=== PATIENT | female | born 1990 | race Caucasian/White ===

== ENCOUNTER 2020-11-22 06:29 | Day surgery (SDC) | payer OTHER ==
[2020-11-22] MEDS ORDERED: Lactated Ringers 1,000 ML IV ONE ×2 (06:45→07:32)
[2020-11-22] MEDS ORDERED: Lactated Ringers 1,000 ML IV SCH (07:00)
[2020-11-22 07:25] VITALS: O2SAT 96
[2020-11-22] MEDS ORDERED: BUPIVACAINE 0.5% VIAL IJ ONE (07:32)
[2020-11-22] MEDS ORDERED: MEFOXIN 2 GM PREMIX** 2 GM/50 ML ML IV ONE (08:19)
[2020-11-22] MEDS ORDERED: Naropin 0.5% 30 ML VIAL ONE (08:20)
[2020-11-22] MEDS ORDERED: DIPRIVAN 200 MG/20 ML IV ONE (08:20)
[2020-11-22] MEDS ORDERED: TORAdol 30 mg Injection ONE (08:20)
[2020-11-22] MEDS ORDERED: Versed 2 MG/2 ML Injection ONE (08:20)
[2020-11-22] MEDS ORDERED: DILAUDID 2 MG INJECTION ONE (08:20)
[2020-11-22] MEDS ORDERED: KEFZOL 1 GM ONE (08:20)
[2020-11-22] MEDS ORDERED: Zofran 4 MG/2 ML VIAL ONE (08:20)
[2020-11-22] MEDS ORDERED: Decadron 4 MG INJ ONE ×2 (08:20)
[2020-11-22] MEDS ORDERED: EPINEPHRINE 1MG/ML AMP ONE (08:20)
[2020-11-22] MEDS ORDERED: Xylocaine-Mpf 2% 5 Ml Vial ONE (08:20)
[2020-11-22] MEDS ORDERED: XYLOCAINE 1% HCL 20 ML MDV ONE (08:58)
[2020-11-22] MEDS ORDERED: TRANDATE 20 MG/4 ML SYRINGE IV ONE (10:53)
--- NOTE | 2020-11-22 11:26 | XRAY ---
Indication: Lateral ankle stabilization. Intraoperative fluoroscopy provided for 1 minute 13 seconds. 7 digital spot images of the right ankle was obtained demonstrating multiple instrumentation. Correlate with intraoperative findings/report.
[2020-11-22] MEDS ORDERED: TRANDATE 100 MG/20 ML MDV FOR DRIP IV ONE (11:29)
[2020-11-22] MEDS ORDERED: Hydromorphone 1 mg/ml Injection ONE (11:32)
--- NOTE | 2020-11-22 12:31 | XRAY ---
1 minute and 13 seconds fluoroscopy time in surgery for stabilization of the right ankle.
[2020-11-22 14:07] VITALS: BP 130/77; PULSE 89
--- NOTE | 2020-11-25 09:29 | OP ---
SURGERY DATE/TIME: 11/22/2020 0844 INDICATION FOR PROCEDURE: Berna presented to my service on 11/14/2020 for complaints of right ankle pain to the outside following an inversion sprain injury. The patient was treated by another provider for a series of eight weeks with immobilization, nonweight bearing, ambulation and CAM boot. At this time the patient has had very little improvement in her pathology and has had recurrent injury to this ankle in regards to lateral ankle instability. The issue is chronic and likely will not repair on its own with time, immobilization or any other conservative therapy which has all been exhausted at this time including physical therapy and nonsteroidal anti-inflammatories. At this time the patient wishes to proceed with surgical intervention to which I agree. The patient understood all risks, benefits and complications of the surgical intervention which were explained in depth at chair side when the consultation was held. She understands and was given plenty of time for questions which were answered to her apparent satisfaction. PREOPERATIVE DIAGNOSES: 1) Lateral ankle instability right. 2) Right ankle pain. 3) Right ankle crepitation with range of motion. POSTOPERATIVE DIAGNOSES: 1) Lateral ankle instability right. 2) Right ankle pain. 3) Right ankle crepitation with range of motion. PROCEDURES: 1) Right ankle arthroscopy with synovectomy. 2) Right lateral stabilization double ligament. SURGEON: Harjeet Weeks DPM. BUFFING MACHINE OPERATOR SEMIAUTOMATIC: None. ANESTHESIA: General plus local. HEMOSTASIS: Thigh tourniquet set to 350 mm of Mercury for 78 minutes. ESTIMATED BLOOD LOSS: Less than 10 cc. MATERIALS: Arthrex internal brace, three fiber tack bone anchors, 2-0 Vicryl and 3-0 Nylon. INJECTABLES: 30 cc of 1:1 mixture of 1% lidocaine plain and 0.5% Marcaine injected into the right ankle in an ankle block-type fashion. DESCRIPTION OF PROCEDURE AND FINDINGS: Following adequate assessment by the anesthesia team in the preoperative area, the patient was brought into the OR and placed on the OR table in the supine position. A well-padded thigh tourniquet was applied to the patient's right leg and the tourniquet was set to 350 mm of Mercury. At this time the right lower extremity was prepped and draped in the typical sterile fashion and the surgical extremity was lowered onto the surgical field. At this time attention was directed to the anterior aspect of the right ankle where a marking pen was utilized to plan out the surgical site. One small poke hole incision was made just medial to the tibialis anterior tendon at the level of the tibiotalar joint this was superficial and then blunt dissection was made utilizing a mini-hemostat to reach and puncture the capsule of the tibiotalar joint. At this time a blunt trocar and obturator was inserted into the tibiotalar joint. The obturator was then removed and the arthroscopy scope was placed into the joint. At this time the guide light was utilized to visualize the entry point for the shaver at the lateral aspect of the tibiotalar joint this was identified just lateral to the superficial peroneal nerve distribution. Again, an 11 blade was made to make a superficial skin incision and a blunt curved mini-hemostat was utilized to puncture the capsule and dissect the subcutaneous tissue to the level of the capsule without damaging any neurovascular structures. At this time triangulation was utilized to identify the tip of the shaver. At this time significant amount of synovitis was identified within the joint which was resected under direct visualization of the arthroscopic lens. Multiple sites were inspected with particular interest to the lateral ankle ligaments which were visualized and shown to be ruptured as well as the multiple areas on the talar dome and distal tibial plafond. There showed no osteochondral lesions or defects within the cartilage. All synovitis was resected and the obturator lens and shaver were removed from the surgical site. At this time a curved incision extending from the distal tip of the fibula out to the talar neck and down to the lateral wall of the calcaneus was made in order to visualize the surgical site. An incision was made utilizing a 15 blade. Careful dissection was made using sharp and blunt dissection in order to prevent any injury to the superficial peroneal nerve which was identified and retracted out of the surgical field. At this time the distal limb of the internal brace was first placed into the lateral aspect of the talar neck at approximate 30 degree angle making sure not to violate the posterior facet and be complete positioned within the talar body. Following placement of this and of the internal brace, the Brostrom portion of the procedure was performed this was performed by raising a periosteal flap off of the end of the anterior distal fibula which was utilized to imbricate the end of the ruptured ligament found at found at this site. Two fiber tacks were utilized to split the difference between the distal and proximal aspects of the ligament which were placed into the distal end of the fibula. In the center of this the drill hole as the proximal limb for the internal brace was predrilled prior to performing the Brostrom portion of the procedure. Following the [id number] technique in order to bring and imbricate the anterior talofibular ligament into a normal resting position with the foot dorsiflexed and slightly everted, the proximal limb of the internal brace was anchored into the fibula. At this time attention was then directed to the distal tip of the fibula where the ruptured calcaneofibular ligament (CFL) was identified. At this time the peroneal tendons were identified and visualized and appeared to be healthy without any indications of synovectomy or damage. At this time they were retracted out of the surgical field and the proximal ruptured limb of the calcaneofibular ligament was imbricated using a fiber tack to the distal tip of the fibula. At this time the foot was held in dorsiflexion and eversion for the remainder of the procedure. A copious amount of sterile saline was utilized to flush the surgical site and 2-0 Vicryl was utilized to coapt the subcutaneous skin edges which were then followed by 3-0 Nylon in a horizontal mattress-type fashion making sure to mikaela the skin edges. The punctures sites for the arthroscopic procedure were then coapted utilizing 3-0 Nylon in a horizontal mattress-type fashion. At this time the tourniquet was taken down. The total tourniquet time was approximately 78 minutes. The leg was cleansed with sterile saline on a wet lap and dried with a dry lap. A dressing consisting of Adaptic, 4x4, Kerlix and a well-padded posterior splint with sugar-tong was applied to the right lower extremity and set in a position of dorsiflexion and eversion. Anesthesia was reserved and the patient was returned to the postoperative anesthesia care unit with vital signs stable and vascular status intact. Postoperative orders as indicated in the postoperative orders in the surgical note.
== END 2020-11-22 13:15 | disposition home or self-care (01) ==
LOC: SDC 06:29
PROVIDERS: ATTEND Podiatrist Foot & Ankle Surgery
DX: M25.371 Other instability, right ankle (principal); M25.571 Pain in right ankle and joints of right foot; M24.871 Other specific joint derangements of right ankle, not elsewhere classified; S93.491D Sprain of other ligament of right ankle, subsequent encounter
CPT/HCPCS: 27696; 29895; 73600; 76000; 84703; J0171; J0690; J0694; J1100; J1170; J1885; J2250; J2405; J2704; J2795

== ENCOUNTER 2021-02-13 12:20 | Emergency (ER) | payer OTHER ==
[2021-02-13 12:43] VITALS: BP 149/110; PULSE 95; O2SAT 97
[2021-02-13] MEDS ORDERED: TYLENOL 325 MG PO ONE (12:52)
--- NOTE | 2021-02-13 12:59 | ERPHSYRPT ---
- History of Present Illness Time Seen by Provider: 02/13/21 12:45 Source: patient Exam Limitations: no limitations Patient Subjective Stated Complaint: here for pain to rihgt ankle after tripping and falling, she had surgery on ankle to repain tendons on 11/22/20. she was walking without book when tripped Triage Nursing Assessment: pt alert, resp easy, skin w/d/p, has scar to right ankle no sweling noted, strong radial pulse Physician History: Patient is a 30-year-old female presents to our emergency department with pain to her right ankle. Patient states she had surgery on her right ankle on the 22 November. Patient has since been wearing a walking boot. Patient states she took her walking boot off today however accidentally inverted her ankle. Injury occurred just prior to arrival. Pain described as an ache that is well localized. No radiation. Pain worse with movement palpation and weightbearing. Pain improved with rest. No other injuries reported. No BHT or LOC. The fall was mechanical. It was not associated with any sort of neuro or cardiovascular symptomology. Patient voices no other complaints concerns at this time. Method of Injury: twisted Occurred: just prior to arrival Quality: constant Severity of Pain-Max: moderate Severity of Pain-Current: mild Lower Extremities Pain: ankle: right Allergies/Adverse Reactions: diphenhydramine [From Benadryl] Allergy (Severe, Verified 11/22/20 06:53) lips and facial swelling iodine Allergy (Severe, Verified 11/22/20 06:53) Hives ketorolac [From Toradol] Allergy (Severe, Verified 11/22/20 06:53) throat swelling and vomiting tramadol Allergy (Severe, Verified 11/22/20 06:53) throat swelling fentanyl Allergy (Verified 11/22/20 06:53) Hives latex Allergy (Verified 11/22/20 06:53) Hives povidone-iodine [From Betadine] Allergy (Verified 11/15/20 18:04) soap [From Betadine] Allergy (Verified 11/15/20 18:04) Home Medications: Albuterol Sulfate [Proair Hfa] 2 puff IH UD PRN 11/22/20 [History] Hx Influenza Vaccination/Date Given: Yes Hx Pneumococcal Vaccination/Date Given: No Immunizations Up to Date: No Travel Risk - International Travel Have you traveled outside of the country in past 3 weeks: No - Coronavirus Screening Are you exhibiting any of the following symptoms?: No Close contact with a COVID-19 positive Pt in past 14-21 Days: No - Vaccine Status Have you recieved a Covid-19 vaccination: No - Review of Systems Constitutional: No Symptoms, No Fever, No Chills Eyes: No Symptoms Ears, Nose, & Throat: No Symptoms Respiratory: No Symptoms, No Cough, No Dyspnea Cardiac: No Symptoms, No Chest Pain, No Edema, No Syncope Abdominal/Gastrointestinal: No Symptoms, No Abdominal Pain, No Nausea, No Vomiting, No Diarrhea Genitourinary Symptoms: No Symptoms, No Dysuria Musculoskeletal: No Symptoms, No Back Pain, No Neck Pain Skin: No Symptoms, No Rash Neurological: No Symptoms, No Dizziness, No Focal Weakness, No Sensory Changes Psychological: No Symptoms Endocrine: No Symptoms Hematologic/Lymphatic: No Symptoms Immunological/Allergic: No Symptoms All Other Systems: Reviewed and Negative - Past Medical History Pertinent Past Medical History: Yes Neurological History: Epilepsy ENT History: No Pertinent History Cardiac History: Hypertension Respiratory History: Asthma Endocrine Medical History: No Pertinent History Musculoskeletal History: No Pertinent History GI Medical History: No Pertinent History History: No Pertinent History Psycho-Social History: No Pertinent History Female Reproductive Disorders: No Pertinent History Other Medical History: last seizure was in 2011 - Past Surgical History Past Surgical History: Yes Neuro Surgical History: No Pertinent History Cardiac: No Pertinent History Respiratory: No Pertinent History Gastrointestinal: Cholecystectomy Genitourinary: Other Musculoskeletal: No Pertinent History, Orthopedic Surgery Female Surgical History: Section, Tubal Ligation Other Surgical History: x2,right ankle ,. left arm fx repair - Social History Smoking Status: Current every day smoker Exposure to second hand smoke: Yes Drug Use: none Patient Lives Alone: No - Female History Hx Last Menstrual Period: now Hx Now: No - Nursing Vital Signs Nursing Vital Signs: Initial Vital Signs Temperature 98.8 F 02/13/21 12:39 Pulse Rate 95 H 02/13/21 12:39 Respiratory Rate 18 02/13/21 12:39 Blood Pressure 149/110 02/13/21 12:39 O2 Sat by Pulse Oximetry 97 02/13/21 12:39 Pain Scale Pain Intensity 8 - Physical Exam General Appearance: alert Eyes, Ears, Nose, Throat Exam: moist mucous membranes Neck Exam: non-tender, supple Cardiovascular/Respiratory Exam: chest non-tender, normal breath sounds, regular rate/rhythm, no respiratory distress Gastrointestinal/Abdominal Exam: non-tender, guarding Back Exam: normal inspection, No vertebral tenderness Hips Exam: bilateral: non-tender, normal inspection, normal range of motion, no evidence of injury Legs Exam: bilateral leg: non-tender, normal inspection, normal range of motion, no evidence of injury Knees Exam: bilateral knee: non-tender, normal inspection, normal range of motion, no evidence of injury Ankle Exam: right ankle: pain, soft tissue tenderness, swelling, other (Right ankle with some soft tissue swelling laterally. Overlying soft tissue intact. Surgical scar well-healed. Negative Homans' sign. Active range of motion limited due to pain. Neurovascular intact distally.), left ankle: non-tender, normal inspection, normal range of motion, no evidence of injury Foot Exam: bilateral foot: non-tender, normal inspection, normal range of motion, no evidence of injury Neuro/Tendon Exam: normal sensation, normal motor functions Mental Status Exam: alert, oriented x 3, cooperative Skin Exam: normal color, warm, dry SpO2 Interpretation: normal SpO2: 97 O2 Delivery: Room Air - Course Nursing assessment & vital signs reviewed: Yes - Radiology Exams Ankle X-ray Interpretation: Teleradiologist Report (Lateral malleolus radiolucencies presumed postoperative and small medial malleolus well-circumscribed ossification presumed developmental versus old injury. Mild anterolateral soft tissue swelling. No other bony articular or soft tissue abnormalities.) Ordered Tests: Active Orders 24 hr Category Date Time Status ANKLE (3 VIEWS) Stat Exams 02/13/21 12:51 Completed Medication Summary Discontinued Medications Generic Name Dose Route Start Last Admin Trade Name Evita PRN Reason Stop Dose Admin Acetaminophen 975 mg 02/13/21 12:52 02/13/21 13:12 Tylenol 325 Mg PO 02/13/21 12:53 975 mg STAT ONE Administration Acetaminophen Confirm 02/13/21 13:12 Tylenol 325 Mg Administered 02/13/21 13:13 Dose 975 mg .ROUTE .STK-MED ONE - Progress Progress: improved Progress Note: Patient reassessed. Pain improved. Patient received a gram of Tylenol for pain control. Patient has multiple allergies. X-ray negative for fracture dislocation. Postoperative changes observed on x-ray. Patient states she has crutches at home. She also has her walking boot and a wheelchair. Patient advised to keep her ankle elevated. Cold pack. Patient to follow-up with the primary care doctor/ankle surgeon for reevaluation within 48 hours. Patient will take [id number] analgesics for pain control. 02/13/21 13:33 Counseled pt/family regarding: diagnosis, need for follow-up, rad results - Departure Departure Disposition: Home Clinical Impression: Ankle sprain Condition: Stable Critical Care Time: No Referrals: JIE MCCORMICK PA [Primary Care Provider] - Additional Instructions: Discharge/Care Plan SUNSHINE LUJAN was seen on 02/13/21 in the Emergency Room. The patient was counseled regarding Diagnosis,Lab results, Imaging studies, need for follow up and when to return to the Emergency Room. Prescriptions given: Discharge Note I have spoken with the patient and/or caregivers. I have explained the patient's condition, diagnosis and treatment plan based on the information available to me at this time. I have answered the patient's and/or caregiver's questions and addressed any concerns. The patient and/or caregivers have as good understanding of the patient's diagnosis, condition and treatment plan as can be expected at this point. The vital signs have been stable. The patient's condition is stable and appropriate for discharge from the emergency department. The patient will pursue further outpatient evaluation with the primary care physician or other designated or consulting physician as outlined in the d ischarge instructions. The patient and/or caregivers are agreeable to this plan of care and follow-up instructions have been explained in detail. The patient and/or caregivers have received these instruction. The patient/and or caregivers are aware that any significant change in condition or worsening of symptoms should prompt an immediate return to this or the closest emergency department or call 911.
[2021-02-13] MEDS ORDERED: TYLENOL 325 MG ONE (13:12)
--- NOTE | 2021-02-13 13:16 | XRAY ---
Indication: Pain following fall. Comparison: December 23, 2020. 3 view right ankle again demonstrates lateral malleolus radiolucencies presumed postoperative and small medial malleolus well-circumscribed ossification presumed developmental versus old injury. Mild anterolateral soft tissue swelling. No other bony, articular, or soft tissue abnormalities.
== END 2021-02-13 13:32 | disposition home or self-care (01) ==
LOC: ED 12:20
DX: S93.401A Sprain of unspecified ligament of right ankle, initial encounter (principal); W01.0XXA Fall on same level from slipping, tripping and stumbling without subsequent striking against object, initial encounter; M25.571 Pain in right ankle and joints of right foot
CPT/HCPCS: 73610; 99283; A9270-GY

== ENCOUNTER 2021-08-01 06:52 | Day surgery (SDC) | payer OTHER ==
[~2021-08-01 06:52] MED LIST: BUPIVACAINE 0.5% VIAL IJ ONE; XYLOCAINE 1% HCL 20 ML MDV ONE
[2021-08-01] MEDS ORDERED: CEFAZOLIN 2 GM-D5W BAG** 2 GM/50 ML ML IV SCH (08:00)
[2021-08-01] MEDS ORDERED: Lactated Ringers 1,000 ML IV SCH (08:00)
[2021-08-01] MEDS ORDERED: CEFAZOLIN 2 GM-D5W BAG** 2 GM/50 ML ML IV ONE (08:00)
[2021-08-01] MEDS ORDERED: Lactated Ringers 1,000 ML IV ONE (08:01)
[2021-08-01] MEDS ORDERED: Zofran 4 MG/2 ML VIAL ONE (09:00)
[2021-08-01] MEDS ORDERED: Xylocaine-Mpf 2% 5 Ml Vial ONE (09:00)
[2021-08-01] MEDS ORDERED: DILAUDID 2 MG INJECTION ONE (09:00)
[2021-08-01] MEDS ORDERED: DIPRIVAN 200 MG/20 ML IV ONE (09:00)
[2021-08-01] MEDS ORDERED: Decadron 4 MG INJ ONE (09:00)
[2021-08-01] MEDS ORDERED: BREVIBLOC 100 MG/10 ML IV ONE (11:09)
[2021-08-01] MEDS ORDERED: Hydromorphone 1 mg/ml Injection ONE ×2 (11:44→12:00)
[2021-08-01] MEDS ORDERED: MORPHINE SULFATE 10 MG/ML ONE (12:17)
[2021-08-01 13:23] VITALS: O2SAT 96
[2021-08-01 13:31] VITALS: BP 152/98; PULSE 84
--- NOTE | 2021-08-01 14:21 | OP ---
SURGERY DATE/TIME: 08/01/2021 0915 PREOPERATIVE DIAGNOSIS: Tarsal tunnel syndrome right lower extremity. POSTOPERATIVE DIAGNOSIS: Tarsal tunnel syndrome right lower extremity. PROCEDURE: Tarsal tunnel release right lower extremity. SURGEON: Harjeet Weeks DPM. BOOKKEEPER ASSISTANT: None. ANESTHESIA: General plus local postoperatively. HEMOSTASIS: Thigh tourniquet set to 350 mm of Mercury for 74 minutes. ESTIMATED BLOOD LOSS: Less than 10 cc. MATERIALS: Surgical jamel. INJECTABLES: 20 cc of a 1:1 mixture of 1% lidocaine plain and 0.5% bupivacaine plain. INDICATION FOR SURGERY: Berna is a very pleasant 31 year-old female, very well known to my service for suffering a lateral ankle ligament rupture with extreme pain that did not respond to conservative therapy. We proceeded with a lateral destabilization. During the course of physical therapy, she suffered from her fall she had some weakness to the extensor muscle group of her ankle and discovered in her fall she likely damaged the common peroneal nerve, was also noted some scar tissue resulting in the drop foot. After EMG was performed this demonstrated severe common peroneal nerve impingement as well as severe tarsal tunnel. Dr. Alvarez in [place] did not feel comfortable with proceeding with surgical intervention. The tarsal tunnel actually is not smooth anatomy for this he recommended immediate tarsal tunnel release two weeks ago. The patient followed up in my clinic this last week and notified me of this therefore we got her on the schedule as soon as possible in order to perform the tarsal tunnel release. The patient understands all risks, benefits and complications of surgical intervention at this time including but not limited to failure of surgical intervention, delayed wound healing, nonwound healing, continued scars and adhesions if not worsening of the tarsal tunnel syndrome and possible loss of sensation to the right lower extremity. With all of this she understands the generalized goal for this surgery is to reduce the numbness and tingling to the plantar aspect of the foot. There were no guarantees made as to the outcome of surgical intervention at this time with this the patient wished to proceed. DESCRIPTION OF PROCEDURE AND FINDINGS: Following satisfactory preoperative evaluation, the patient was brought into OR and placed on OR table and placed in supine position. General anesthesia was then administered by the anesthesia team. A well-padded pneumatic tourniquet was placed around the patient's right thigh. The right foot was then prepped and draped in the typical sterile fashion. An Esmarch was utilized to exsanguinate the right lower extremity and tourniquet inflated to 350 mm of Mercury. At this time attention was directed to the posterior aspect of the right medial malleolus where a 4.5 cm longitudinal incision was made down to skin using a 15 blade. The incision was carefully deepened through subcutaneous tissue by careful sharp and blunt dissection taking care to protect all neurovascular structures. At this time a second incision was created along the abductor hallucis muscle belly approximately 4 cm incision with the proximal incision starting at the distal end of the previous incision the two by approximately a 2 cm skin bridge. The flexor retinaculum was identified transected and cauterized with bipolar cautery. The incision was then followed proximally and distally releasing most of the posterior compartment of the leg to the abductor hallucis muscle belly. The abductor hallucis muscle belly then was carefully reflected away from the tibial nerve and the fascia was released. Medial and lateral plantar tunnels identified and bluntly with a [place] elevator made a T-shaped fasciotomy which was created into the abductor hallucis muscle belly. The nerve at the medial and lateral portals were identified and via blunt dissection the nerve tunnels were then cauterized via bipolar taking care to protect neurological and arterial structures, stopping between the medial and lateral plantar nerves were then sharply divided with dissecting scissors and bipolar electrocautery. The medial calcaneal nerve was then identified and subcutaneous tissue was carefully freed of its constricture. Decompression of the medial and lateral plantar nerve, the medial calcaneal nerve and the tibial nerve were then completed at this time. At this time area was then flushed with sterile saline. No subcutaneous stitches were used to provide for prevention of adhesion. Skin jamel were used to close the surgical site. A postoperative injection of a 1:1 mixture of 1% lidocaine plain and 0.5% bupivacaine plain was injected. The tourniquet was the deflated at 74 minutes total tourniquet time. The patient was deemed to have dorsalis pedis and posterior tibial pulse noted with immediate capillary refill time to all digits. A dressing consisting of Hibiclens, Adaptic, 4x4, Kerlix was applied to the right lower extremity as well as a posterior splint in order to reduce the amount of tension. On the surgical incision. The patient tolerated the procedure as well as the anesthesia without complication and was transported to postoperative anesthesia care unit with vital signs stable and vascular status intact to the right lower extremity. Postoperative orders as indicated in the patient's postoperative chart.
== END 2021-08-01 13:40 | disposition home or self-care (01) ==
LOC: SDC 06:52 → EDSTATUS 14:06
PROVIDERS: ATTEND Podiatrist Foot & Ankle Surgery
DX: G57.51 Tarsal tunnel syndrome, right lower limb (principal); M25.571 Pain in right ankle and joints of right foot; Z79.899 Other long term (current) drug therapy
CPT/HCPCS: 28035; 84703; J0690; J1100; J1170; J2270; J2405; J2704

== ENCOUNTER 2022-07-29 14:13 | Day surgery (SDC) | payer OTHER ==
[2022-07-29] MEDS ORDERED: Sensorcaine 0.25% 10 ML IJ ONE (14:14)
[2022-07-29] MEDS ORDERED: LIDOCAINE HCL 1% 50 MG/5 ML VL PF IJ ONE (14:14)
[2022-07-29] MEDS ORDERED: Versed 2 MG/2 ML Injection ONE (14:42)
[2022-07-29] MEDS ORDERED: Lactated Ringers 1,000 ML IV ONE (16:06)
[2022-07-29] MEDS ORDERED: DIPRIVAN 200 MG/20 ML IV ONE (16:12)
--- NOTE | 2022-07-29 17:18 | XRAY ---
Indication: Right lumbar sympathetic nerve block. Intraoperative fluoroscopy provided for 41 seconds. 6 digital spot image submitted for interpretation demonstrates right posterior needle tip projecting just anterior to L2 vertebral body. Small amount of contrast injected for needle tip placement. Correlate with intraoperative findings/report.
--- NOTE | 2022-07-29 17:21 | XRAY ---
41 seconds of fluoroscopy was used in surgery for a right lumbar sympathetic nerve block.
== END 2022-07-29 16:50 | disposition home or self-care (01) ==
LOC: SDC-PAIN 14:13
PROVIDERS: ATTEND Psychiatry & Neurology Pain Medicine
DX: G90.521 Complex regional pain syndrome I of right lower limb (principal); Z79.899 Other long term (current) drug therapy
CPT/HCPCS: 64520; 72100; 77002; 77003; 81025; 82947; J2001; J2250; J2704; Q9966

== ENCOUNTER 2022-09-02 11:11 | Day surgery (SDC) | payer OTHER ==
[2022-09-02] MEDS ORDERED: Xylocaine 1% Vial 30 ML PF IJ ONE (11:12)
[2022-09-02] MEDS ORDERED: Sensorcaine 0.25% 10 ML IJ ONE (11:12)
[2022-09-02] MEDS ORDERED: Lactated Ringers 1,000 ML IV ONE (13:09)
[2022-09-02] MEDS ORDERED: DIPRIVAN 200 MG/20 ML IV ONE ×2 (13:58→14:05)
[2022-09-02] MEDS ORDERED: MORPHINE SULFATE 2 MG INJ ONE (14:18)
--- NOTE | 2022-09-02 15:02 | XRAY ---
Indication: Right sympathetic nerve block. Intraoperative fluoroscopy provided for 31 seconds. 6 digital spot images submitted for interpretation demonstrates posterior needle tip just anteriorly to right L2 segment. Small amount of contrast injected for needle tip placement. Correlate with intraoperative findings/report.
--- NOTE | 2022-09-02 15:19 | XRAY ---
31 seconds of fluoroscopy was used in surgery for a right sympathetic nerve block.
== END 2022-09-02 14:35 | disposition home or self-care (01) ==
LOC: SDC-PAIN 11:11
PROVIDERS: ATTEND Psychiatry & Neurology Pain Medicine
DX: G90.529 Complex regional pain syndrome I of unspecified lower limb (principal); Z79.899 Other long term (current) drug therapy
CPT/HCPCS: 64520; 72100; 77002; 77003; 81025; J2001; J2270; J2704; Q9966

== ENCOUNTER 2022-11-11 10:54 | Day surgery (SDC) | payer OTHER ==
[2022-11-11] MEDS ORDERED: LIDOCAINE HCL 1% 50 MG/5 ML VL PF IJ ONE (10:55)
[2022-11-11] MEDS ORDERED: Sensorcaine 0.25% 10 ML IJ ONE (10:55)
[2022-11-11] MEDS ORDERED: DIPRIVAN 200 MG/20 ML IV ONE (12:49)
[2022-11-11] MEDS ORDERED: MORPHINE SULFATE 2 MG INJ ONE (13:08)
--- NOTE | 2022-11-11 14:39 | XRAY ---
Indication: Right lumbar sympathetic nerve block. Intraoperative fluoroscopy provided for 40 seconds. 4 digital spot image submitted for interpretation demonstrates right posterior needle tip anterior to mid lumbar segment, presumed L2. Small amount of contrast injected for needle tip placement. Correlate with intraoperative findings/report.
--- NOTE | 2022-11-11 14:56 | XRAY ---
40 seconds of fluoroscopy was used in surgery for a right lumbar sympathetic nerve block.
[2022-11-11] MEDS ORDERED: Lactated Ringers 1,000 ML IV ONE (15:33)
== END 2022-11-11 13:20 | disposition home or self-care (01) ==
LOC: SDC-PAIN 10:54
PROVIDERS: ATTEND Psychiatry & Neurology Pain Medicine
DX: G90.529 Complex regional pain syndrome I of unspecified lower limb (principal); Z79.899 Other long term (current) drug therapy
CPT/HCPCS: 64520; 72100; 77002; 81025; 82947; J2001; J2270; J2704; Q9966

== ENCOUNTER 2023-10-07 06:47 | Day surgery (SDC) | payer OTHER ==
[2023-10-07] MEDS ORDERED: XYLOCAINE-MPF 1% 5ML SDV IJ ONE (06:48)
[2023-10-07] MEDS ORDERED: Sodium Chloride 0.9(Preservative Free) 10 ML IJ ONE (06:48)
[2023-10-07 07:05] LABS: HCG URINE TEST NEGATIVE (NEGATIVE)
[2023-10-07] MEDS ORDERED: DIPRIVAN 200 MG/20 ML IV ONE (07:49)
[2023-10-07] MEDS ORDERED: BACIGUENT 30 GM ONE (08:26)
[2023-10-07] MEDS ORDERED: Hydromorphone 1 mg/ml Injection ONE (08:40)
--- NOTE | 2023-10-07 10:37 | XRAY ---
Indication: Spinal cord stimulator trial. Intraoperative fluoroscopy provided for 1 minute 11 seconds. 11 digital spot images submitted for interpretation demonstrates posterior introducer needle tip posterior to L1. Ultimately insertion of a single epidural lead terminating mid thoracic spine, probably T8. Correlate with intraoperative findings/report.
[2023-10-07] MEDS ORDERED: Lactated Ringers 1,000 ML IV ONE (12:03)
--- NOTE | 2023-10-08 10:57 | XRAY ---
1 minute and 11 seconds of fluoroscopy was used in surgery for a spinal cord stimulator trial.
== END 2023-10-07 09:23 | disposition home or self-care (01) ==
LOC: SDC-PAIN 06:47
PROVIDERS: ATTEND Psychiatry & Neurology Pain Medicine
DX: M96.1 Postlaminectomy syndrome, not elsewhere classified (principal); E11.9 Type 2 diabetes mellitus without complications
CPT/HCPCS: 01941; 63650; 72100; 77002; 81025; 82947; C1897; J1170; J2704; A9270-GY